=== PATIENT | female | born 1995 | race Caucasian/White ===

== ENCOUNTER 2024-04-17 00:36 | Inpatient (IN) | payer OTHER, SELFPAY ==
[2024-04-17 00:56] VITALS: BMI 32.9
[2024-04-17 01:01] VITALS: BP 132/84
[2024-04-17 01:12] LABS: % Basophils 0.3 % (0-2); % Eosinophils 1.9 % (0-6); % Immature Granulocytes 0.8 % (0-0.5); % Lymphocytes 18.4 % (20.5-51.1); % Monocytes 4.8 % (1.7-9.3); % Neutrophils 73.8 % (42.2-75.2); Absolute Basophils 0.1 10^3/uL (0-0.2); Absolute Eosinophils 0.3 10^3/uL (0-0.7); Absolute Immature Granulocytes 0.1 10^3/uL (0-0.05); Absolute Lymphocytes 2.7 10^3/uL (1.2-3.4); Absolute Monocytes 0.7 10^3/uL (0.1-0.6); Absolute Neutrophils 10.7 10^3/uL (1.4-6.5); Hematocrit 34.8 % (37.0-47.0); Hemoglobin 12.4 g/dL (12.0-16.0); Mean Corp Hgb Conc. 35.6 g/dL (33.0-37.0); Mean Corpuscular Hgb 29.5 pg (27.0-31.0); Mean Corpuscular Volume 82.9 fL (81.0-99.0); Mean Platelet Volume 8.6 fL (7.4-10.4); Nucleated Red Blood Cells % 0 %; Platelet Count 224 10^3/uL (130-400); Red Cell Dist. Width 13.2 % (11.5-14.5); White Blood Cell Count 14.5 10^3/uL (4.8-10.8)
[2024-04-17] MEDS: FENTANYL/BUPIVACAINE 100 EPIDURAL (01:52)
[2024-04-17] MEDS: SUBLIMAZE 100 MCG EPIDURAL (01:52)
[2024-04-17] MEDS: PITOCIN 30 UNITS/NSS 500 ML IV (07:52)
[2024-04-17] MEDS: XYLOCAINE-MPF 1% VIAL 30 ML INFIL (07:52)
[2024-04-17] MEDS: METHERGINE INJECTION 0.200000000000000011 MG IM (11:26)
[2024-04-17] MEDS: TRANEXAMIC ACID 100 IV (11:31)
[2024-04-17] MEDS: HYDROCORTISONE 2.5% OINTMENT 1 APPLIC TOPICAL (11:55)
[2024-04-17] MEDS: TYLENOL 650 MG PO ×2 (12:31→20:06)
[2024-04-17] MEDS: SENOKOT-S 1 TABLET PO (12:33)
[2024-04-18] MEDS: TYLENOL 650 MG PO ×2 (04:09→10:20)
[2024-04-18 05:18] LABS: Hematocrit 32.4 % (37.0-47.0); Hemoglobin 10.8 g/dL (12.0-16.0)
[2024-04-18] MEDS: SENOKOT-S 1 TABLET PO (10:21)
[2024-04-21 12:35] LABS: Syphilis/T. pallidum Ab Reflex Negative (Negative)
== END 2024-04-18 15:37 | disposition home or self-care (01) | DRG 807 ==
LOC: LDRP 00:36
PROVIDERS: Obstetrics & Gynecology; ADMITTING PHYSICIAN Obstetrics & Gynecology
PROC: 6A550ZT Pheresis of Cord Blood Stem Cells, Single (ICD-10-PCS; 2024-04-17)
PROC: 0HQ9XZZ Repair Perineum Skin, External Approach (ICD-10-PCS; 2024-04-17)
PROC: 10E0XZZ Delivery of Products of Conception, External Approach (ICD-10-PCS; 2024-04-17)
PROC: 10907ZC Drainage of Amniotic Fluid, Therapeutic from Products of Conception, Via Natural or Artificial Opening (ICD-10-PCS; 2024-04-17)
DX: O69.81X0 Labor and delivery complicated by cord around neck, without compression, not applicable or unspecified (principal); Z37.0 Single live birth; Z3A.39 39 weeks gestation of pregnancy; O70.0 First degree perineal laceration during delivery; J45.909 Unspecified asthma, uncomplicated; G43.909 Migraine, unspecified, not intractable, without status migrainosus; Z88.6 Allergy status to analgesic agent; Z88.1 Allergy status to other antibiotic agents; Z88.0 Allergy status to penicillin; Z86.16 Personal history of COVID-19; Z86.19 Personal history of other infectious and parasitic diseases; Z83.3 Family history of diabetes mellitus; Z82.49 Family history of ischemic heart disease and other diseases of the circulatory system; Z80.0 Family history of malignant neoplasm of digestive organs
CPT/HCPCS: 85014; 85018; 85025; 86780; 86850; 86900; 86901

== ENCOUNTER 2025-08-01 08:31 | Emergency (ER) | payer BC, OTHER, SELFPAY ==
[2025-08-01 08:37] VITALS: BP 121/85
--- NOTE | 2025-08-01 09:09 | ED.GENMED ---
History of Present Illness
General
Chief Complaint: Musculo-Skeletal Complaint
Time Seen by Provider: 08/01/25 09:06
History of Present Illness
History of Present Illness:
FOCUSED PAST MEDICAL HISTORY
- Depression/anxiety, migraines
REVIEW OF OLD RECORDS
- The patient gave here in the past
Note:
CHIEF COMPLAINT(S)
Pain and swelling in the right knee.
HISTORY OF PRESENT ILLNESS
The patient is a 30-year-old female who presented with pain and swelling in the right knee, which started approximately two weeks ago. The pain appears to have started spontaneously, without any associated injury. The patient described that she
sometimes experiences knee pain during weather changes, but the current swelling is more significant than in the past. The patient mentioned that the swelling was not as severe when evaluated at the orthopedic clinic on Saturday, but has since
worsened, and she is now unable to walk normally, taking 25 minutes to get through due to difficulty bearing weight.
The patient denies any fever and reports no redness in the knee region, although there was a slight increase in warmth upon examination. She has maintained compliance with immunizations. She also experiences nausea associated with the knee pain,
recalling a past incident where the pain was so severe that she passed out. The patient took Zofran to prevent additional nausea and potential passing out during the current evaluation.
The patient also reported some bloody diarrhea with some abdominal cramping earlier in the week.
PAST MEDICAL AND SURIGICAL HISTORY
The patient did not report any pertinent past medical or surgical history during the encounter.
IMMUNIZATION HISTORY
The patient reports being up to date with all immunizations.
REVIEW OF SYSTEMS
- Musculoskeletal: Right knee pain and swelling, exacerbated recently, making weight-bearing difficult. No fever. Slight warmth over the site but no redness observed.
- Gastrointestinal: Nausea associated with knee pain.
PHYSICAL EXAM
General: Awake and alert but appears somewhat uncomfortable related to pain at the right knee
Skin: Warm, dry.
Head: Normocephalic, atraumatic.
Neck: Supple, trachea midline.
Eye Ears, nose, mouth and throat: Oral mucosa moist.
Cardiovascular: Normal peripheral perfusion, No edema.
Respiratory: Respirations are non-labored.
Gastrointestinal: Abdomen nondistended.
Back: Normal range of motion, Normal alignment.
Musculoskeletal: There is moderate to large right knee joint effusion which markedly decreases active range of motion into flexion, there is minimal warmth but no erythema
Neurological: Alert and oriented to person, place, time, and situation, No focal neurological deficit observed.
Psychiatric: Appears somewhat anxious
PROBLEM LIST
- Acute: Right knee pain and swelling with associated nausea.
PLAN
- Perform blood work to assess for potential infection or other abnormalities causing knee swelling.
- Proceed with aspiration of the knee joint to relieve swelling and provide a sample for fluid analysis, ensuring a sterile technique to minimize infection risk.
- Administer anti-nausea medication if the patient continues to experience severe nausea.
- Arrange for an MRI of the knee scheduled for the upcoming Saturday, as inpatient MRI is not available for this acute case without significant neurological deficit.
DIFFERENTIAL DIAGNOSIS
The Differential Diagnosis includes, in no particular order and is not limited to:
1. Traumatic knee effusion
2. Septic arthritis
3. Gout
4. Pseudogout
5. Osteoarthritis
6. Rheumatoid arthritis
7. Reactive arthritis
8. Meniscal injury
9. Ligamentous injuries
10. Synovitis from systemic disease.
LABS
- White count 6.9, CRP 7.6
UPDATE
-SUMMARY OF ENCOUNTER
The patient is a 30-year-old female who presented with pain and swelling in the right knee, which started spontaneously approximately two weeks ago. The patient was seen in the emergency department due to the worsening symptoms and difficulty in
weight-bearing. Blood work from the patient was reviewed, showing normal white count and C-reactive protein levels, suggesting the absence of severe infection or significant inflammation. Aspiration of the knee joint was performed, yielding 50cc of
fluid without evidence of pus or crystals, ruling out septic arthritis and gout or pseudogout. The management decision for pain relief included the consideration of NSAIDs, but the patient has an NSAID allergy; therefore, a prescription for narcotic
analgesics was provided. The patient expressed concern about the delay in scheduled MRI and rheumatological assessment. Discussion with Dr. Apple affirmed no urgent surgical indications. The patient was provided with crutches for assistance and
declined a knee immobilizer due to its inefficacy with the current swelling.
DISPOSITION
Discharge
ASSESSMENT
The patient presents with acute right knee pain and swelling, suspected to be related to inflammatory or mechanical causes rather than an infectious etiology, given normal laboratory markers and fluid analysis findings.
PLAN
1. Discharge with pain management using prescribed narcotic analgesics.
2. Follow-up with outpatient MRI scheduled for Saturday.
3. Referral for rheumatological evaluation given historical suspicion of autoimmune disease.
4. Provide crutches for assistance with ambulation.
5. Advise the patient to contact the [employer] internship to potentially expedite the appointment scheduling.
INDEPENDENT REVIEW OF LABS AND INTERPRETATION OF TESTS
My independent review of blood lab results indicates a normal white blood cell count and C-reactive protein levels, suggesting no significant infection or inflammation. The aspirated knee joint fluid analysis showed no high white blood cell count
(8,000), supporting the absence of a septic joint. Additionally, there were no crystals, which supports ruling out gout or pseudogout.
PROCEDURES
Knee Aspiration: Aspiration of the right knee joint was performed, yielding 50cc of fluid. The fluid was clear with no evidence of infection (pus) or crystals.
PATIENT EDUCATION AND COUNSELING
The patient was informed about the normal findings from the knee aspiration and lab results, ruling out the most concerning diagnoses such as a septic joint. She was advised on the importance of follow-up with the recommended specialists and the MRI
to further evaluate the knee condition. She was also instructed on the use of narcotics for pain management while avoiding NSAIDs due to her allergy.
FOLLOW-UP INSTRUCTIONS
The patient is to follow up with her primary care physician and [employer] internship after the MRI. She was encouraged to consider expediting her rheumatology appointment if possible and to reach out to the specialists for guidance based on the updated
findings.
MEDICATION RECONCILIATION
A prescription for a narcotic analgesic was provided to manage acute knee pain, considering the patients NSAID allergy.
MEDICAL DECISION MAKING
Number and Complexity of Problems Addressed: The differential diagnosis includes traumatic knee effusion, septic arthritis, gout, pseudogout, osteoarthritis, rheumatoid arthritis, reactive arthritis, meniscal injury, ligamentous injuries, and
synovitis from systemic disease.
Data:
Category 1:
- Labs reviewed: Normal white blood cell count, normal C-reactive protein.
- Fluid analysis from the knee aspiration: WBC 8,000, no crystals, no pus.
Category 3:
- Discussion with Dr. Foster regarding the current management plan and the lack of surgical urgency.
Risk:
Prescription medication was prescribed due to the patients NSAID allergy, necessitating an alternative pain management approach.
DIAGNOSIS
- ICD-10 M25.561: Pain in right knee
- ICD-10 M25.469: Effusion of right knee, unspecified cause
Phy Exam
Physical Exam
Physical Exam:
See HPI
Course
Orders/Labs/Results
Orders:
Orders
08/01/25 09:32
Ondansetron Injectable [Zofran] 4 mg IV NOW STA
08/01/25 09:38
Basic Metabolic Panel Urgent
CRP [C-Reactive Protein] Urgent
Complete Blood Count/With Diff Urgent
ESR [Erythrocyte Sed Rate] Urgent
08/01/25 10:07
Body Fluid Cell Count Urgent
What is the Body Fluid: R knee
Date Specimen was Collected: 08/01/25
Time Specimen was Collected: 09:35
Body Fluid Crystals Urgent
What is the Body Fluid: R knee
Date Specimen was Collected: 08/01/25
Time Specimen was Collected: 09:35
Fluid Culture with Gram Stain Urgent
KEVYN Source: Joint Fluid
Specimen Description:
Date Specimen was Collected: 08/01/25
Time Specimen was Collected: 09:35
Comment: R knee
08/01/25 11:54
Crutches-Treatment ONCE
Knee Immobilizer Right-Treatme ONCE
Abnormal Lab Results
08/01/25
09:38
BUN 6 L mg/dl
(7-17)
08/01/25 09:38
08/01/25 09:38
Vital Signs
Initial and Last Documented VS:
Initial Vital Signs
Temp Pulse Resp BP Pulse Ox
36.8 C 101 16 121/85 98
08/01/25 08:37 08/01/25 08:37 08/01/25 08:37 08/01/25 08:37 08/01/25 08:37
Last Documented Vital Signs
Temp Pulse Resp BP Pulse Ox
36.8 C 72 16 114/68 99
08/01/25 10:42 08/01/25 10:42 08/01/25 10:42 08/01/25 10:42 08/01/25 10:42
Procedures
Incision/Drainage/Joint Aspiration
Right Lateral Knee:
Anethesia: 1% Lidocaine with Epi
Preparation: cleaned with Hibiclens (x2)
Type of procedure: aspiration
Nature of site: other (Right knee joint aspiration)
Description of abscess: greater than 3cm
Loculations broken up: No
How much fluid was obtained?: number in mls (50+)
Fluid description: clear
Treatment: bandaid applied
*Pulse Oximetry
SaO2: 98
Oxygen Mode of Delivery: Room air
Patient hypoxic: no
*Critical Care Note
Total Time (30-74mins, 75-104mins- exclusive of procedures): Not Applicable
ED Attending Note
-
Portions of this chart may have been created with voice recognition software.� Occasional wrong word or��sound alike� substitutions may have occurred due to the inherent limitations of voice recognition software.
Discharge Plan
Departure
Patient Disposition: Home (Routine Discharge)
Date of Disposition: 08/01/25
Time of Disposition: 11:54
Patient with high blood pressure during this ER visit?: Yes
Discharge Problem:
Effusion of right knee joint
Instructions: Knee Immobilizer (DC), Knee Pain (DC)
Prescriptions:
New
oxycodone-acetaminophen [Percocet] 5-325 mg tablet
1 - 2 tab PO Q6HPRN PRN (Reason: pain) Qty: 14 0RF
No Action
Zyrtec tablet
10 mg PO PRN
kjnwrixe-zbm-Rj-FA 1 mg Tablet
1 tab PO DAILY
acetaminophen 325 mg Tablet
650 mg PO Q4HPRN PRN (Reason: mild pain) Qty: 0 0RF
Referrals:
Mireya Barbosa MD [Consulting Staff, Rheumatology]
Bernardino Brown MD [Family Provider, Family Practice]
Activity Restrictions/Additional Instructions:
I spoke to Dr. Foster he recommends you follow-up with a [employer] internship. I have given you the contact information for Dr. Barbosa. Your C-reactive protein is normal at 7.6, you have 8334 white cells in the fluid�this is not high enough to suggest
a infection. No crystals were seen on the fluid sample. If you take a narcotic, I recommend taking senna like MiraLAX to prevent constipation.
Interventions
Interventions:
*Risk Screen - Suicide Last Done: 08/01/25 08:37
*General Assessment Last Done: 08/01/25 11:01
*Neglect/Abuse Screening Last Done: 08/01/25 08:37
*ED- Fall Risk Assessment Last Done: 08/01/25 11:01
*ED COVID-19 Vaccine History Last Done: 08/01/25 11:01
*ED Influenza Vaccine History Last Done: 08/01/25 11:01
ED-Musculoskeletal Assessment Last Done: 08/01/25 09:46
Discharge Date and Time
Print Language: ERITREAN
[2025-08-01 09:37] VITALS: BMI 23.2
[2025-08-01] MEDS: ZOFRAN 4 MG IV (09:44)
[2025-08-01 10:04] LABS: Hematocrit 37.5 % (37.0-47.0); Hemoglobin 12.5 g/dL (12.0-16.0); Mean Corp Hgb Conc. 33.3 g/dL (33.0-37.0); Mean Corpuscular Volume 86.4 fL (81.0-99.0); Nucleated Red Blood Cells % 0 %; Platelet Count 160 10^3/uL (130-400); Red Cell Dist. Width 12.7 % (11.5-14.5)
[2025-08-01 10:08] LABS: Blood Urea Nitrogen 6 mg/dl (7-17); Calcium 9.0 mg/dl (8.4-10.2); Carbon Dioxide 29 mmol/L (22-30); Chloride 105 mmol/L (98-107); Estimated Creatinine Clearance > 125 ml/min; Glucose 76 mg/dl (70-99); Potassium 4.4 mmol/L (3.5-5.1); Sodium 137 mmol/L (135-145); eGFR > 60.00
[2025-08-01 10:13] LABS: C-Reactive Protein 7.60 mg/L (0.0-10.00)
[2025-08-01 10:42] VITALS: BP 114/68
[2025-08-01 11:38] LABS: Body Fluid Second Tech US
== END 2025-08-01 12:19 | disposition home or self-care (01) ==
LOC: EMR 08:31
PROVIDERS: EMERGENCY PHYSICIAN Emergency Medicine; FAMILY PHYSICIAN Family Medicine
DX: M25.461 Effusion, right knee (principal)
CPT/HCPCS: 99284; 20610; 96374; 80048; 85025; 85652; 86140; 87015; 87070; 87205; 89051; 89060

== ENCOUNTER 2025-08-23 20:54 | Emergency (ER) | payer BC, OTHER, SELFPAY ==
[2025-08-23 20:58] VITALS: BP 130/76
[2025-08-23 21:30] VITALS: BP 120/86
[2025-08-23] MEDS: PEPCID 20 MG PO (21:38)
[2025-08-23] MEDS: DECADRON 10 MG PO (21:38)
[2025-08-23] MEDS: VENTOLIN NEBULES 2.5 MG INH ×2 (21:38→21:54)
[2025-08-23] MEDS: BENADRYL 25 MG PO (21:38)
[2025-08-23 21:48] VITALS: BP 120/76
[2025-08-23 22:00] VITALS: BP 119/76
--- NOTE | 2025-08-23 22:57 | ED.GENMED ---
History of Present Illness
General
Chief Complaint: Allergic Reaction
Source: patient
Exam Limitations: none
Time Seen by Provider: 08/23/25 21:27
Nursing documentation reviewed up to this point in time: agreed with
History of Present Illness
History of Present Illness:
Patient presents to ED secondary to sudden onset of throat closing sensation with nasal congestion, approximately 20 minutes after taking ketorolac for toothache. Patient has had similar symptoms in the past secondary to ibuprofen. Patient when
she took ketorolac, thought that she was taking antibiotics. Patient afterwards took 2 tablets of Benadryl along with EpiPen injection into her thigh, with minimal relief in symptoms. Denies chest pain. Denies nausea or vomiting. Denies
dizziness. Denies chest pain. Denies throat swelling sensation. Denies difficulty with swallowing.
Review of Systems
Review of Systems
Allergies reviewed?: Yes
All Other Systems: ROS reviewed and negative except as documented in HPI and ROS
Constitutional: Reports no symptoms
EENT: Reports no symptoms
Respiratory: Reports no symptoms
Cardiac: Reports no symptoms
ABD/GI: Reports abdominal pain and nausea; Denies vomiting
Musculoskeletal: Reports no symptoms
Skin: Reports no symptoms
Neurological: Reports no symptoms
Phy Exam
Physical Exam
Physical Exam:
Physical Exam
General: mild distress, not acutely ill. afebrile
Head: nc/at. eomi
Neck: supple. normal range of motion. no stridor. posterior pharynx well-visualized.
Heart: s1/s2 regular rate and rhythm
Lungs: no acute respiratory distress. clear bilaterally
Abdomen: normal bowel sounds. not tender.
Neuro: alert and oriented x 3. no focal neurological deficits
Skin: no rash
Psychiatric: well kept. interactive and cooperative
Extremities: no edema. no calf tenderness.
Course
Orders/Labs/Results
Orders:
Orders
08/23/25 21:34
Albuterol Nebs [Ventolin Nebules] 2.5 mg INH R NOW STA
Dexamethasone Pf [Decadron] 10 mg PO NOW STA
Diphenhydramine [Benadryl] 25 mg PO NOW STA
Famotidine [Pepcid] 20 mg PO NOW STA
08/23/25 21:53
Albuterol Nebs [Ventolin Nebules] 2.5 mg .ROUTE .STK-MED ONE
08/23/25 21:54
Albuterol Nebs [Ventolin Nebules] 2.5 mg INH R NOW STA
Vital Signs
Initial and Last Documented VS:
Initial Vital Signs
Temp Pulse Resp Pulse Ox
97.5 F 70 26 100
08/23/25 20:55 08/23/25 20:55 08/23/25 20:55 08/23/25 20:55
Last Documented Vital Signs
Temp Pulse Resp BP Pulse Ox
97.5 F 89 17 119/76 100
08/23/25 20:55 08/23/25 22:00 08/23/25 22:00 08/23/25 22:00 08/23/25 22:57
MDM/Problems Addressed
MDM/Problems Addressed:
Patient with complete resolution of symptoms after treatment. Patient is otherwise afebrile, hemodynamically stable, and is without any respiratory distress, at time of discharge, to the care of her friend.
*Pulse Oximetry
SaO2: 100
Oxygen Mode of Delivery: Room air
Patient hypoxic: no
*Critical Care Note
Total Time (30-74mins, 75-104mins- exclusive of procedures): Not Applicable
ED Attending Note
-
Portions of this chart may have been created with voice recognition software.� Occasional wrong word or��sound alike� substitutions may have occurred due to the inherent limitations of voice recognition software.
Discharge Plan
Departure
Patient Disposition: Home (Routine Discharge)
Date of Disposition: 08/23/25
Time of Disposition: 22:57
Patient with high blood pressure during this ER visit?: Yes
Condition: Fair
Discharge Problem:
Allergic reaction
Instructions: Adverse Drug Reactions, Adult (DC)
Prescriptions:
No Action
Zyrtec tablet
10 mg PO PRN
vpknjvxc-tyf-Zm-FA 1 mg Tablet
1 tab PO DAILY
acetaminophen 325 mg Tablet
650 mg PO Q4HPRN PRN (Reason: mild pain) Qty: 0 0RF
oxycodone-acetaminophen [Percocet] 5-325 mg tablet
1 - 2 tab PO Q6HPRN PRN (Reason: pain) Qty: 14 0RF
Referrals:
Bernardino Brown MD [Family Provider, Family Practice]
Activity Restrictions/Additional Instructions:
As discussed, please follow-up with your primary care physician with any further concerns.
Interventions
Interventions:
*Risk Screen - Suicide Last Done: 08/23/25 20:55
*General Assessment Last Done: 08/23/25 21:51
*Neglect/Abuse Screening Last Done: 08/23/25 20:55
*ED- Fall Risk Assessment Last Done: 08/23/25 21:51
*ED COVID-19 Vaccine History Last Done: 08/23/25 21:51
*ED Influenza Vaccine History Last Done: 08/23/25 21:51
*Nursing Disposition Last Done: 08/23/25 23:09
ED- Cardiac Assessment Last Done: 08/23/25 22:06
ED- Pulmonary Assessment Last Done: 08/23/25 22:06
ED-Skin Assessment Last Done: 08/23/25 22:06
Discharge Date and Time
Discharge Date/Time: 08/23/25 23:09
Print Language: IRISH
== END 2025-08-23 23:09 | disposition home or self-care (01) ==
LOC: EMR 20:54
PROVIDERS: EMERGENCY PHYSICIAN Emergency Medicine; FAMILY PHYSICIAN Family Medicine
DX: R09.89 Other specified symptoms and signs involving the circulatory and respiratory systems (principal); T39.8X5A Adverse effect of other nonopioid analgesics and antipyretics, not elsewhere classified, initial encounter; X58.XXXA Exposure to other specified factors, initial encounter
CPT/HCPCS: 99284; 94640

== ENCOUNTER 2025-10-09 11:21 | Emergency (ER) | payer BC, OTHER, SELFPAY ==
[2025-10-09 11:22] VITALS: BP 144/92; BMI 23.2
[2025-10-09] MEDS: NSS 1000 IV (11:43)
[2025-10-09 11:51] VITALS: BP 113/85
--- NOTE | 2025-10-09 11:53 | ED.GENMED ---
History of Present Illness
General
Chief Complaint: Vaginal Bleeding
Source: patient
Exam Limitations: none
Time Seen by Provider: 10/09/25 11:36
History of Present Illness
History of Present Illness:
G4, P3 presents with vaginal bleeding cramping small clots. Symptoms started this morning. LMP late August. Approximately 4-1/2 weeks . Sent by [facility]ESS SPECIALIST for further evaluation. No fever no other complaints
Past History
Past History
ED Past Medical History: Psychiatric
ED Past Surgical History: Orthopedic
Review of Systems
Review of Systems
All Other Systems: Not applicable
Constitutional: Denies fever
Phy Exam
Physical Exam
Physical Exam:
GENERAL: Alert and oriented in no apparent distress
EYE: Orbits normal.
NECK: Supple
CARDIAC: Regular rate and rhythm without any obvious murmurs.
LUNGS: Clear breath sounds,normal
ABDOMEN: Soft, mild nonlocalizing suprapubic tenderness. No rebound or guarding no mass or hernia
NEUROLOGICAL: Alert and oriented , grossly non-focal
SKIN: Warm and dry, no rash or lesion, no discoloration, skin intact.
MUSCULOSKELETAL: No edema,no deformity.Good color
PSYCH: Normal and appropriate interaction.
Course
Orders/Labs/Results
Orders:
Orders
10/09/25 11:36
IV Insert/Care/Rem.- Treatment PRN
0.9% Sodium Chloride 1000 ml [Nss] 1,000 ml IV BOLUS
US 1st Trimester Urgent
Comment:
Reason For Exam: 5 weeks . Vaginal bleeding cramping
10/09/25 11:45
Blood Group&Type Urgent
Complete Blood Count/With Diff Urgent
10/09/25 12:20
Basic Metabolic Panel Urgent
Beta HCG Quantitative Urgent
Abnormal Lab Results
10/09/25 10/09/25
11:45 12:20
Absolute Neuts (auto) 6.8 H 10^3/uL
(1.4-6.5)
Lymphocytes % 17.2 L %
(20.5-51.1)
Potassium 3.3 L mmol/L
(3.5-5.1)
Creatinine 0.5 L mg/dL
(0.6-1.0)
Glucose 101 H mg/dl
(70-99)
10/09/25 11:45
10/09/25 12:20
Vital Signs
Initial and Last Documented VS:
Initial Vital Signs
Pulse Resp BP Pulse Ox
118 19 144/92 100
10/09/25 11:22 10/09/25 11:22 10/09/25 11:22 10/09/25 11:22
Last Documented Vital Signs
Temp Pulse Resp BP Pulse Ox
98 F 97 16 102/78 99
10/09/25 14:11 10/09/25 14:11 10/09/25 14:11 10/09/25 14:11 10/09/25 14:11
MDM/Problems Addressed
Differential Diagnosis Includes:
Differential would include bleeding during , miscarriage, ectopic workup in progress. The patient states are accurate, unlikely to get a definitive answer today.
*Radiology
Radiology exam reviewed: radiology read reviewed (No intrauterine sac mildly thickened endometrium)
*Pulse Oximetry
SaO2: 100
Oxygen Mode of Delivery: Room air
Patient hypoxic: no
*Critical Care Note
Total Time (30-74mins, 75-104mins- exclusive of procedures): Not Applicable
Update Note
Update Note:
Quantitative hCG 6.41. Discussed with [facility]ESS SPECIALIST. Very very likely a miscarriage. Patient updated. Discharged to follow-up. Clinically stable.
ED Attending Note
-
Portions of this chart may have been created with voice recognition software.� Occasional wrong word or��sound alike� substitutions may have occurred due to the inherent limitations of voice recognition software.
Discharge Plan
Departure
Patient Disposition: Home (Routine Discharge)
Date of Disposition: 10/09/25
Time of Disposition: 14:04
Patient with high blood pressure during this ER visit?: No
Discharge Problem:
Threatened , Mild hypokalemia
Instructions: Hypokalemia, Miscarriage (DC), Threatened Miscarriage (DC)
Prescriptions:
No Action
Zyrtec tablet
10 mg PO PRN
pajjigbk-ngj-Qp-FA 1 mg Tablet
1 tab PO DAILY
acetaminophen 325 mg Tablet
650 mg PO Q4HPRN PRN (Reason: mild pain) Qty: 0 0RF
oxycodone-acetaminophen [Percocet] 5-325 mg tablet
1 - 2 tab PO Q6HPRN PRN (Reason: pain) Qty: 14 0RF
Referrals:
Bernardino Brown MD [Family Provider, Family Practice]
Activity Restrictions/Additional Instructions:
Call your structural steel erector Saturday morning for close follow-up.
Interventions
Interventions:
*General Assessment Last Done: 10/09/25 11:24
*Neglect/Abuse Screening Last Done: 10/09/25 11:24
*ED COVID-19 Vaccine History Last Done: 10/09/25 11:24
*ED Influenza Vaccine History Last Done: 10/09/25 11:24
[facility] Fall Risk Assessment Tool Last Done: 10/09/25 11:22
*Risk Screen - Suicide (C-SSRS) Last Done: 10/09/25 11:24
*Nursing Disposition Last Done: 10/09/25 14:14
ED-Female Genitourinary Assessment Last Done: 10/09/25 11:53
Discharge Date and Time
Discharge Date/Time: 10/09/25 14:14
Print Language: NEPALI
[2025-10-09 12:00] VITALS: BP 108/83
[2025-10-09 12:13] LABS: Hematocrit 37.5 % (37.0-47.0); Hemoglobin 12.8 g/dL (12.0-16.0); Mean Corp Hgb Conc. 34.1 g/dL (33.0-37.0); Mean Corpuscular Volume 83.7 fL (81.0-99.0); Nucleated Red Blood Cells % 0 %; Platelet Count 215 10^3/uL (130-400); Red Cell Dist. Width 12.7 % (11.5-14.5)
[2025-10-09 12:30] VITALS: BP 112/82
[2025-10-09 12:48] LABS: Blood Urea Nitrogen 7 mg/dl (7-17); Calcium 8.7 mg/dl (8.4-10.2); Carbon Dioxide 25 mmol/L (22-30); Chloride 107 mmol/L (98-107); Estimated Creatinine Clearance > 125 ml/min; Glucose 101 mg/dl (70-99); Potassium 3.3 mmol/L (3.5-5.1); Sodium 138 mmol/L (135-145); eGFR > 60.00
[2025-10-09 12:57] LABS: Beta HCG Quantitative 6.41 mIU/ml
[2025-10-09 14:11] VITALS: BP 102/78
== END 2025-10-09 14:14 | disposition home or self-care (01) ==
LOC: EMR 11:21
PROVIDERS: EMERGENCY PHYSICIAN Emergency Medicine; FAMILY PHYSICIAN Family Medicine
DX: O20.0 Threatened abortion (principal); O99.281 Endocrine, nutritional and metabolic diseases complicating pregnancy, first trimester; E87.6 Hypokalemia; Z3A.01 Less than 8 weeks gestation of pregnancy
CPT/HCPCS: 99285; 96360; 76801; 80048; 84702; 85025; 86900; 86901

== ENCOUNTER → 2025-10-12 08:31 | Outpatient (REF) | payer BC, OTHER, SELFPAY ==
[2025-10-12 10:19] LABS: Beta HCG Quantitative < 2.39 mIU/ml
== END ==
LOC: REG 08:31
PROVIDERS: ATTENDING PHYSICIAN Obstetrics & Gynecology
DX: O02.1 Missed abortion (principal)
CPT/HCPCS: 36415; 84702